=== PATIENT | female | born 1975 | race African-American/Black ===

== ENCOUNTER → 2016-12-23 | Emergency (ER) | payer SELFPAY ==
[~2016-12-23] VITALS: Ht 180.3 cm; Wt 97.7 kg
[~2016-12-23] MED LIST: HUMALOG; INSU3INS6 SUBCUT; METF500T4 PO; SITA100T6 PO; UNKNOWN BP MED
[2016-12-23 09:35] VITALS: BP 151/93
== END ==
LOC: ER 09:09
DX: R07.9 Chest pain, unspecified (principal); Z53.21 Procedure and treatment not carried out due to patient leaving prior to being seen by health care provider
CPT/HCPCS: 93005; 99281; Z7610; 99283

== ENCOUNTER 2018-09-11 19:23 | Emergency (ER) | payer OTHER, MEDICAID ==
[~2018-09-11] VITALS: Ht 180.3 cm; Wt 94.0 kg
[~2018-09-11 19:23] MED LIST changes: +METF-414 PO; -METF500T4 PO; +SITA100T11 PO; -SITA100T6 PO
[2018-09-11 22:39] LABS: CLARITY URINE CLEAR (CLEAR); COLOR URINE YELLOW (YELLOW); KETONES URINE NEGATIVE (NEGATIVE); LEUKOCYTE ESTERASE URINE NEGATIVE (NEGATIVE); NITRITE URINE NEGATIVE (NEGATIVE); OCCULT BLOOD URINE NEGATIVE (NEGATIVE); PH URINE 6.5 (4.5-8.0); PROTEIN URINE NEGATIVE (NEGATIVE); SPECIFIC GRAVITY URINE 1.024 (1.005-1.030); UROBILINOGEN URINE 0.2 E.U./dL (0.2-1.0)
[2018-09-11] MEDS ORDERED: FLUCONAZOLE 100MG TABLET PO ONE (23:00)
[2018-09-11 23:23] VITALS: BP 121/90
== END 2018-09-11 23:37 | disposition home or self-care (01) ==
LOC: ER 23:30
DX: B37.9 Candidiasis, unspecified (principal); F32.9 Major depressive disorder, single episode, unspecified; E11.9 Type 2 diabetes mellitus without complications; I10 Essential (primary) hypertension; Z90.710 Acquired absence of both cervix and uterus; Z79.4 Long term (current) use of insulin
CPT/HCPCS: 99283

== ENCOUNTER 2023-08-13 16:35 | Emergency (ER) | payer MEDICAID, OTHER ==
[~2023-08-13] VITALS: Ht 180.3 cm; Wt 79.0 kg
[2023-08-13 17:01] VITALS: BP 106/71; TEMP 98.9; O2SAT 99
[2023-08-13] MEDS ORDERED: ALBUTEROL (0.5%) 2.5MG/0.5ML NEB HHN ONE (21:00)
[2023-08-13] MEDS ORDERED: ALBU18HF2 IH (21:55)
[2023-08-13] MEDS ORDERED: P50 MT (21:55)
[2023-08-13] MEDS ORDERED: ALBUTEROL (0.083%) 2.5MG/3ML NEB ONE (22:33)
[2023-08-13 22:38] VITALS: PULSE 88; RESP 20
== END 2023-08-13 23:54 | disposition home or self-care (01) ==
LOC: ER 16:35
DX: J45.901 Unspecified asthma with (acute) exacerbation (principal); D64.9 Anemia, unspecified; J45.909 Unspecified asthma, uncomplicated; E11.9 Type 2 diabetes mellitus without complications; I10 Essential (primary) hypertension; Z90.710 Acquired absence of both cervix and uterus; Z90.49 Acquired absence of other specified parts of digestive tract
CPT/HCPCS: 71045; 94640; 99283; Z7610 ×3

== ENCOUNTER 2023-08-21 15:10 | Emergency (ER) | payer OTHER ==
[~2023-08-21] VITALS: Ht 180.3 cm; Wt 80.0 kg
[~2023-08-21 15:10] MED LIST changes: +ALBU18HF2 IH; +P50 MT
[2023-08-21 15:17] VITALS: TEMP 98.2; O2SAT 98
[2023-08-21] MEDS ORDERED: ONDANSETRON HCL 4MG/2ML INJ IV ONE (15:30)
[2023-08-21] MEDS ORDERED: SODIUM CHLORIDE 0.9% 1,000 ML IV ONE ×2 (15:30→17:45)
[2023-08-21 16:28] LABS: BASOPHILS % 0.5 % (0.0-2.0); HEMATOCRIT. 41.2 % (36.0-48.0); HEMOGLOBIN. 13.6 g/dL (12.0-16.0); LYMPHOCYTES % 22.6 % (20.0-50.0); MEAN CORPUSCULAR HEMOGLOBIN 29.5 pg (28.0-32.0); MEAN CORPUSCULAR VOLUME 89.3 fL (81.0-99.0); MEAN PLATELET VOLUME 10.3 fl (7.4-10.4); MONOCYTES % 4.4 % (2.0-8.0); NEUTROPHILS % 71.5 % (40.0-76.0); PLATELET 231 x1000/uL (130-400); RED BLOOD CELL COUNT 4.61 mill/uL (4.2-5.4); RED CELL DISTRIBUTION WIDTH 14.2 % (11.6-14.6); WHITE BLOOD COUNT 10.1 x1000/uL (4.5-11.0)
[2023-08-21 16:45] LABS: PROTHROMBIN TIME 10.3 sec (9.6-11.0)
[2023-08-21 16:47] LABS: ALANINE AMINOTRANSFERASE 10 IU/L (10-49); ALBUMIN 4.1 g/dL (3.2-4.8); ASPARTATE AMINOTRANSFERASE 17 IU/L (<34); CALCIUM 10.1 mg/dL (8.7-10.4); CARBON DIOXIDE 27 mEq/L (21-32); CHLORIDE 103 mEq/L (98-107); CREATININE 1.2 mg/dL (0.6-1.0); GLUCOSE 373 mg/dL (70-105); POTASSIUM 4.2 mEq/L (3.5-5.1); PROTEIN TOTAL 7.6 g/dL (6.0-8.3); SODIUM 138 mEq/L (136-145); UREA NITROGEN BLOOD 11 mg/dL (9-23)
[2023-08-21 16:51] LABS: HCG SCREEN NEGATIVE
[2023-08-21 18:55] LABS: BETA HYDROXYBUTYRATE 2.4 mMol/L (0.0-0.3)
[2023-08-21 19:57] VITALS: BP 163/102; PULSE 99; RESP 18
[2023-08-21 20:49] LABS: CLARITY URINE CLEAR (CLEAR); COLOR URINE YELLOW (YELLOW); GLUCOSE URINE 3+ (NEGATIVE); KETONES URINE 1+ (NEGATIVE); PH URINE 5.5 (4.5-8.0); PROTEIN URINE NEGATIVE (NEGATIVE)
[2023-08-21 20:50] LABS: LEUKOCYTE ESTERASE URINE NEGATIVE (NEGATIVE); NITRITE URINE NEGATIVE (NEGATIVE); OCCULT BLOOD URINE NEGATIVE (NEGATIVE); UROBILINOGEN URINE 0.2 E.U./dL (0.2-1.0)
[2023-08-21 21:15] LABS: *AMPHETAMINES SCREEN URINE NEGATIVE (NEGATIVE); *BARBITURATES SCREEN URINE NEGATIVE (NEGATIVE); *BENZODIAZEPINES SCREEN URINE NEGATIVE (NEGATIVE); *COCAINE SCREEN URINE NEGATIVE (NEGATIVE); CANNABINOID URINE SCREEN NEGATIVE (NEGATIVE); ECSTASY MDMA SCREEN URINE NEGATIVE (NEGATIVE); METHADONE URINE SCREEN Neg (NEGATIVE); OPIATES URINE SCREEN NEGATIVE (NEGATIVE); PHENCYCLIDINE URINE SCREEN NEGATIVE (NEGATIVE)
[2023-08-21 21:40] LABS: BACTERIA URINE TRACE; RBC URINE 0-2 /hpf (0-2); SQUAMOUS EPITHELIAL CELL URINE FEW /lpf (RARE/1+); WBC URINE 0-2 /hpf (0-2)
== END 2023-08-21 22:10 | disposition home or self-care (01) ==
LOC: ER 15:14
DX: E11.65 Type 2 diabetes mellitus with hyperglycemia (principal); R53.1 Weakness; R11.0 Nausea; D64.9 Anemia, unspecified; J45.909 Unspecified asthma, uncomplicated; I10 Essential (primary) hypertension
CPT/HCPCS: 80053; 80305; 81003; 82010; 84703; 83690; 85025; 85610; 36415; 93005; 96360; 99284; J7030; Z7610

== ENCOUNTER 2023-12-28 10:19 | Emergency (ER) | payer MEDICAID, OTHER ==
[~2023-12-28] VITALS: Ht 180.3 cm; Wt 74.4 kg
[2023-12-28 10:26] VITALS: O2SAT 98
[2023-12-28] MEDS ORDERED: IBUPROFEN 800MG TABLET PO ONE (11:45)
[2023-12-28] MEDS: IBUPROFEN 400MG TABLET PO NR (12:05)
[2023-12-28] MEDS ORDERED: ACET325T52 MT (14:39)
[2023-12-28 14:44] VITALS: BP 155/89; PULSE 99; RESP 18; TEMP 98.2
== END 2023-12-28 14:51 | disposition home or self-care (01) ==
LOC: ER 10:19
DX: M79.605 Pain in left leg (principal); J45.909 Unspecified asthma, uncomplicated; E11.9 Type 2 diabetes mellitus without complications; I10 Essential (primary) hypertension; D64.9 Anemia, unspecified; Z90.49 Acquired absence of other specified parts of digestive tract; Z90.710 Acquired absence of both cervix and uterus; Z98.890 Other specified postprocedural states
CPT/HCPCS: 73590; 81025; 93971; 99284

== ENCOUNTER 2024-03-24 13:02 | Emergency (ER) | payer MEDICAID ==
[~2024-03-24] VITALS: Ht 172.7 cm; Wt 75.0 kg
[~2024-03-24 13:02] MED LIST changes: +ACET325T52 MT
[2024-03-24 13:10] VITALS: TEMP 98.5; O2SAT 97
[2024-03-24] MEDS ORDERED: KETOROLAC 15MG/ML VIAL IM ONE (13:15)
[2024-03-24] MEDS ORDERED: LIDO700A15 TP (15:18)
[2024-03-24] MEDS ORDERED: NAPR-1176 MT (15:18)
[2024-03-24] MEDS: KETOROLAC 15MG/ML VIAL IM NR (15:29)
[2024-03-24 15:33] VITALS: BP 148/96; PULSE 102; RESP 16
== END 2024-03-24 15:35 | disposition home or self-care (01) ==
LOC: ER 13:02
DX: M25.561 Pain in right knee (principal); R51.9 Headache, unspecified; J45.909 Unspecified asthma, uncomplicated; E11.9 Type 2 diabetes mellitus without complications; I10 Essential (primary) hypertension; Z79.899 Other long term (current) drug therapy; Z98.890 Other specified postprocedural states; Z90.710 Acquired absence of both cervix and uterus; Z90.49 Acquired absence of other specified parts of digestive tract; W01.0XXA Fall on same level from slipping, tripping and stumbling without subsequent striking against object, initial encounter; Y93.01 Activity, walking, marching and hiking; Y92.89 Other specified places as the place of occurrence of the external cause; Y99.8 Other external cause status
CPT/HCPCS: 99283; 81025; 73552; 73562; 96372; J1885

== ENCOUNTER 2024-05-01 13:37 | Emergency (ER) | payer MEDICAID ==
[~2024-05-01] VITALS: Ht 180.3 cm; Wt 67.0 kg
[~2024-05-01 13:37] MED LIST changes: +LIDO700A15 TP; +NAPR-1176 MT
[2024-05-01 13:51] VITALS: BP 163/99; PULSE 119; RESP 20; TEMP 98.2; O2SAT 100
[2024-05-01] MEDS ORDERED: ONDANSETRON HCL 4MG/2ML INJ IV ONE (14:00)
[2024-05-01] MEDS ORDERED: MORPHINE SULFATE 4 MG/ML INJ (FOR IV/IM USE) IV ONE (14:00)
[2024-05-01] MEDS ORDERED: ACETAMINOPHEN 325MG TABLET PO ONE (15:00)
[2024-05-01] MEDS ORDERED: IBUPROFEN 600MG TABLET PO ONE (15:00)
[2024-05-01 15:20] LABS: BASOPHILS % 0.3 % (0.0-2.0); EOSINOPHILS % 1.2 % (0.0-5.0); HEMATOCRIT. 38.6 % (36.0-48.0); HEMOGLOBIN. 12.4 g/dL (12.0-16.0); LYMPHOCYTES % 27.7 % (20.0-50.0); MEAN CORPUSCULAR HEMOGLOBIN 29.5 pg (28.0-32.0); MEAN CORPUSCULAR HGB CONC 32.3 g/dL (31.0-37.0); MEAN CORPUSCULAR VOLUME 91.3 fL (81.0-99.0); MEAN PLATELET VOLUME 10.6 fl (7.4-10.4); MONOCYTES % 4.8 % (2.0-8.0); PLATELET 224 x1000/uL (130-400); RED BLOOD CELL COUNT 4.23 mill/uL (4.2-5.4); RED CELL DISTRIBUTION WIDTH 13.5 % (11.6-14.6); WHITE BLOOD COUNT 9.5 x1000/uL (4.5-11.0)
[2024-05-01 15:28] LABS: CARBON DIOXIDE 29 mEq/L (21-32); CHLORIDE 96 mEq/L (98-107); POTASSIUM 5.4 mEq/L (3.5-5.1); SODIUM 132 mEq/L (136-145)
[2024-05-01 15:29] LABS: CALCIUM 10.7 mg/dL (8.7-10.4)
[2024-05-01 15:34] LABS: CREATININE 1.4 mg/dL (0.6-1.0); UREA NITROGEN BLOOD 24 mg/dL (9-23)
[2024-05-01 15:35] LABS: TROPONIN I HIGH SENSITIVITY 4 ng/L (3.0-34)
[2024-05-01 15:56] LABS: GLUCOSE 686 mg/dL (70-105)
[2024-05-01] MEDS ORDERED: INSULIN REGULAR (HUMULIN R) 1000UNITS/10ML VIAL IV STA (15:56)
[2024-05-01 17:08] LABS: TROPONIN I HIGH SENSITIVITY 4 ng/L (3.0-34)
[2024-05-01 18:48] LABS: TROPONIN I HIGH SENSITIVITY 4 ng/L (3.0-34)
[2024-05-01] MEDS: SODIUM CHLORIDE 0.9% 1,000 ML IV ONE ×2 (21:23→21:33)
[2024-05-01] MEDS: IBUPROFEN 600MG TABLET PO NR (21:23)
[2024-05-01] MEDS ORDERED: SITA100T11 PO (21:24)
[2024-05-01] MEDS ORDERED: INSU100I28 SQ (21:24)
[2024-05-01] MEDS: ACETAMINOPHEN 325MG TABLET PO NR (21:24)
[2024-05-01] MEDS: INSULIN REGULAR (HUMULIN R) 1000UNITS/10ML VIAL IV NR (21:29)
== END 2024-05-01 22:59 | disposition home or self-care (01) ==
LOC: ER 15:00
DX: R07.89 Other chest pain (principal); D64.9 Anemia, unspecified; J45.909 Unspecified asthma, uncomplicated; E11.9 Type 2 diabetes mellitus without complications; I10 Essential (primary) hypertension; Z90.710 Acquired absence of both cervix and uterus; Z79.899 Other long term (current) drug therapy
CPT/HCPCS: 80048; 82962; 83880; 85025; 84484; 36415; 71045; 93005; 96361; 96374; 99285; J1815; J7030; Z7610

== ENCOUNTER 2024-05-10 11:47 | Emergency (ER) | payer MEDICAID ==
[~2024-05-10] VITALS: Ht 180.3 cm; Wt 91.0 kg
[~2024-05-10 11:47] MED LIST changes: +INSU100I28 SQ
[2024-05-10 11:50] VITALS: TEMP 98.5; O2SAT 99
[2024-05-10 12:34] LABS: BASOPHILS % 0.6 % (0.0-2.0); EOSINOPHILS % 1.4 % (0.0-5.0); HEMATOCRIT. 36.7 % (36.0-48.0); LYMPHOCYTES % 28.5 % (20.0-50.0); MEAN CORPUSCULAR HEMOGLOBIN 29.4 pg (28.0-32.0); MEAN CORPUSCULAR HGB CONC 32.7 g/dL (31.0-37.0); MEAN CORPUSCULAR VOLUME 89.8 fL (81.0-99.0); MEAN PLATELET VOLUME 10.1 fl (7.4-10.4); MONOCYTES % 5.4 % (2.0-8.0); NEUTROPHILS % 64.1 % (40.0-76.0); PLATELET 211 x1000/uL (130-400); RED BLOOD CELL COUNT 4.09 mill/uL (4.2-5.4); RED CELL DISTRIBUTION WIDTH 13.4 % (11.6-14.6); WHITE BLOOD COUNT 9.2 x1000/uL (4.5-11.0)
[2024-05-10 12:42] LABS: CHLORIDE 106 mEq/L (98-107); SODIUM 138 mEq/L (136-145)
[2024-05-10 12:43] LABS: CARBON DIOXIDE 28 mEq/L (21-32)
[2024-05-10 12:44] LABS: CALCIUM 9.9 mg/dL (8.7-10.4)
[2024-05-10] MEDS ORDERED: KETOROLAC 30MG/ML VIAL IM ONE (12:45)
[2024-05-10 12:49] LABS: UREA NITROGEN BLOOD 11 mg/dL (9-23)
[2024-05-10 12:50] LABS: ALANINE AMINOTRANSFERASE 17 IU/L (10-49); ALBUMIN 4.1 g/dL (3.2-4.8); ASPARTATE AMINOTRANSFERASE 19 IU/L (<34)
[2024-05-10 12:51] LABS: BILIRUBIN DIRECT 0.2 mg/dL (<=3.0); BILIRUBIN TOTAL 0.9 mg/dL (0.1-1.0); PROTEIN TOTAL 6.8 g/dL (6.0-8.3)
[2024-05-10 12:54] LABS: HCG SCREEN NEGATIVE
[2024-05-10 12:57] LABS: GLUCOSE 436 mg/dL (70-105)
[2024-05-10 13:37] LABS: CLARITY URINE CLEAR (CLEAR); COLOR URINE YELLOW (YELLOW); GLUCOSE URINE 3+ (NEGATIVE); KETONES URINE NEGATIVE (NEGATIVE); LEUKOCYTE ESTERASE URINE NEGATIVE (NEGATIVE); NITRITE URINE NEGATIVE (NEGATIVE); OCCULT BLOOD URINE NEGATIVE (NEGATIVE); PH URINE 5.5 (4.5-8.0); PROTEIN URINE NEGATIVE (NEGATIVE); SPECIFIC GRAVITY URINE 1.025 (1.005-1.030)
[2024-05-10] MEDS ORDERED: DEXTROSE 50% WATER 50ML SYRINGE IV PRN (14:30)
[2024-05-10 15:10] LABS: BACTERIA URINE NONE SEEN; RBC URINE NONE SEEN /hpf (0-2); SQUAMOUS EPITHELIAL CELL URINE FEW /lpf (RARE/1+); WBC URINE NONE SEEN /hpf (0-2); YEAST URINE 1+
[2024-05-10] MEDS: KETOROLAC 30MG/ML VIAL IM NR (15:11)
[2024-05-10] MEDS: BLOOD SUGAR DIAGNOSTIC STRIP TEST SCH (15:23)
[2024-05-10 15:30] VITALS: BP 120/70; PULSE 90; RESP 15
[2024-05-10] MEDS: INSULIN LISPRO 100 UNITS/ML SUBCUT STA (15:36)
[2024-05-10] MEDS ORDERED: INSULIN LISPRO 100 UNITS/ML SUBCUT SCH (18:20)
== END 2024-05-10 15:51 | disposition home or self-care (01) ==
LOC: ER 11:47
DX: R10.32 Left lower quadrant pain (principal); R10.31 Right lower quadrant pain; J45.909 Unspecified asthma, uncomplicated; E11.9 Type 2 diabetes mellitus without complications; I10 Essential (primary) hypertension; Z79.899 Other long term (current) drug therapy; Z90.49 Acquired absence of other specified parts of digestive tract; Z79.4 Long term (current) use of insulin; Z90.710 Acquired absence of both cervix and uterus
CPT/HCPCS: 99285; 74176; 80076; 80048; 81003; 81025; 82962; 84703; 83690; 85025; 36415; 96372; J1815; J1885